=== PATIENT | male | born 1935 | race Caucasian/White ===

== ENCOUNTER 2021-05-25 10:03 | Day surgery (SDC) | payer MEDICARE, OTHER ==
[~2021-05-25 10:03] MED LIST: Lactated Ringers 1,000 ML IV SCH; Propofol 200 MG/20 ML SDV ONE; Sodium Chloride 0.9% 10 ML Syringe FLUSH PRN
--- NOTE | 2021-05-25 11:20 | PCM.HPR ---
H & P Addendum review - H & P Addendum Review Date of Original H & P: 05/12/21 Date Reviewed: 05/25/21 Time Reviewed: 11:20 Patient was Examined: No Changes
[2021-05-25] MEDS ORDERED: Propofol 200 MG/20 ML SDV ONE (11:26)
[2021-05-25] MEDS ORDERED: Lidocaine 2% 100 MG/5 ML Syringe ONE (11:26)
--- NOTE | 2021-05-25 11:40 | PCM.OPNOTE ---
- General Post-Op/Procedure Note Date of Surgery/Procedure: 05/25/21 Operative Procedure(s): EGD Findings: Large HH Pre Op Diagnosis: N and V, wt loss Post-Op Diagnosis: Same Anesthesia Technique: MIAN Primary Surgeon: David Schuster Anesthesia Provider: Kaitlin Delgado Complications: None Condition: Good
--- NOTE | 2021-05-26 09:21 | OR ---
Date of Procedure: 05/25/2021 PREOPERATIVE DIAGNOSIS: 1. Nausea and vomiting. 2. Weight loss. POSTOPERATIVE DIAGNOSIS: Large hiatal hernia. PROCEDURE: Esophagogastroduodenoscopy. ANESTHESIA: IV sedation. PROCEDURE IN DETAIL: Patient was brought to the procedure room where he was placed on his left side and IV sedation administered. Oral bite block was placed and the upper endoscope advanced into the esophagus under direct vision without difficulty. Vocal cords were viewed and were normal. Scope was advanced through the esophagus and stomach to the third portion of the duodenum. Duodenum and pylorus are normal. Antrum and body of the stomach were normal. Retroflexion reveals a normal-appearing fundus. He has a large hiatal hernia with approximately half the stomach above the diaphragm opening. This is a chronic condition and there were no acute changes noted in the stomach lining. The squamocolumnar junction appears normal. There is no evidence of esophagitis. Air was removed through the remaining esophagus which appears normal. The patient tolerated the procedure well, returned to recovery in stable condition. No source of the patient's symptoms were identified today. Upper GI with small- bowel follow-through could be considered for further evaluation. RIGO ARTEAGA MD /[id number]
== END 2021-05-25 12:45 | disposition home or self-care (01) ==
LOC: LL.SDS 10:03
PROVIDERS: ATTEND Surgery
DX: K44.9 Diaphragmatic hernia without obstruction or gangrene (principal); R11.2 Nausea with vomiting, unspecified; R63.4 Abnormal weight loss; N18.9 Chronic kidney disease, unspecified; I10 Essential (primary) hypertension; E78.00 Pure hypercholesterolemia, unspecified; G47.00 Insomnia, unspecified; Z79.899 Other long term (current) drug therapy
CPT/HCPCS: 00731; J2704; J7120